=== PATIENT | female | born 1940 | race Caucasian/White ===

== ENCOUNTER 2019-09-21 08:12 | Outpatient (CLI) | payer MEDICARE, BC ==
[~2019-09-21] VITALS: Ht 165.1 cm; Wt 74.1 kg
--- NOTE | ~2019-09-21 | HEMODYNAMI ---
PATIENT:NORIS DUBOSE MEDICAL RECORD: [id number] : 36 LOCATION:[facility] ADMISSION DATE: 09/21/19 Generatedon:09/21/201911:10 Patient name: NORIS DUBOSE Patient #: [id number] SSN: [id number] : 1940 Date of study: 09/21/2019 Page: Of Hemodynamic Procedure Report Patient Data Patient Demographics Procedure consent was obtained First Name: NORIS Gender: Female Last Name: GRACY : 1940 Patient #: [id number] Age: 78 year(s) Race: SSN: [id number] Additional ID: [id number] Contact details Address: [place] [address] State: [place] City: [place] Zip code: [address] Past Medical History Allergies: No known allergies Admission Admission Data Admission Date: 09/21/2019 Admission Time: 8:12 Arrival Date: 09/21/2019 Arrival Time: 0:00 Admit Source: Other Height (in.): 65 BSA: 1.81 (m2) Height (cm.): 165.1 BMI: 27.12 (kg/m2) Weight (lbs.): 163 Weight (kg.): 73.94 Lab Results Lab Result Date: 09/21/2019 Lab Result Time: 0:00 Biochemistry Name Units Result Min Max BUN mg/dl 22 --(----)-* 7 18 Creatinine mg/dl 1.1 --(--*-)-- 0.6 1.3 eGFR ml/min 51 *-(----)-- 90 120 NONAFRICAN CBC Name Units Result Min Max Hematocrit % 39.5 -*(----)-- 42 54 Hemoglobin g/dl 13.1 -*(----)-- 13.5 17.5 Procedure Procedure Types Cath Procedure Diagnostic Procedure [facility] w/Coronaries FFR/IVUS FFR Initial FFR Additional Sedation Charges Moderate Sedation up to 30 minutes PCI Procedure Coronary Stent Coronary Stent Initial x2 Hemochron ACT Test Procedure Description Procedure Date Procedure Date: 09/21/2019 Procedure Start Time: 10:41 Procedure End Time: 11:06 Procedure Staff Name Function Sheila Dhaliwal RT Scrub Milton Avila RN [employer] Professor Eyal Kat MD Performing Physician Araseli Terry RN Nurse Ashley Lawton RT Monitor Procedure Data Cath Procedure Fluoroscopy Diagnostic fluoroscopy Total fluoroscopy Time: 4.6 time: 4.6 min min Diagnostic fluoroscopy Total fluoroscopy dose: 524 dose: 524 mGy mGy Contrast Material Contrast Material Type Amount (ml) Isovue 370 108 Entry Location Entry Primary Successful Side Size Upsize Upsize Entry Closure Lugo ccessful Closure Location (Fr) 1 (Fr) 2 (Fr) Remarks Device Remarks Radial Right 6 Fr Mechanical artery Short Compression Estimated blood loss: 10 ml Diagnostic catheters Device Type Used For End Catheter Placement DIAGNOSTIC Kipton 110cm 5 Procedure Fr catheter ([id number]) Procedure Complications No complications Procedure Medications Medication Administration Route Dosage 0.9% NaCl I.V. 100 ml/hr Oxygen etCO2 Nasal cannula 2 l/min Lidocaine 2% added to field 20 Heparin Flush Bag added to field 2 bags (1000units/500ml NS) Radial Cocktail added to field 1 syringe (Verapamil 2mg/Nitro 400mcg/Heparin 1500units) Versed I.V. 2 mg Fentanyl I.V. 50 mcg Versed I.V. 2 mg Fentanyl I.V. 50 mcg Heparin Bolus I.V. 4000 units Integrilin (Bolus I.V. 6.8 ml 2mg/ml) Integrilin (Bolus wasted 3.2 ml 2mg/ml) Plavix P.O. 600 mg Hemodynamics Rest BSA: 1.81 (m2) HGB: 13.1 (g/dl) O2 Consumption: Estimated: 151.61 (ml/min) O2 Co nsumption indexed: Estimated:83.76 (ml/min/m) Heart Rate: 54 (bpm) Snapshots Pre Cath Intra NCS Post Cath Vital Signs Time Heart Resp SPO2 etCO2 NIBP (mmHg) Rhythm Pain Sedation Rate (ipm) (%) (mmHg) Status Level (bpm) 10:19:52 53 16 96 36 146/69(121) SB 0 (11) 10(A) , No pain 10:24:51 56 10 96 37.1 Measuring SB 0 (11) 10(A) , No pain 10:25:08 55 10 96 37.1 162/70(118) SB 0 (11) 10(A) , No pain 10:29:30 55 13 95 37.9 160/70(129) SB 0 (11) 10(A) , No pain 10:33:46 60 18 96 38.6 104/58(78) NSR 0 (11) 10(A) , No pain 10:37:47 63 16 96 30.3 105/66(94) NSR 0 (11) 10(A) , No pain 10:41:45 67 13 97 0 122/78(107) NSR 0 (11) 10(A) , No pain 10:45:55 75 10 96 0 101/62(90) NSR 0 (11) 10(A) , No pain 10:50:46 75 19 97 28 131/79(106) NSR 0 (11) 9(A) , No pain 10:54:58 78 18 96 40.8 137/75(114) NSR 0 (11) 9(A) , No pain 10:59:12 73 10 97 21.9 126/70(98) NSR 0 (11) 9(A) , No pain 11:03:20 74 19 96 23.6 127/74(106) NSR 0 (11) 10(A) , No pain Medications Time Medication Route Dose Verified Delivered Reason Not es Effectiveness by by 10:18:53 0.9% NaCl I.V. 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 2 mg Eyal Araseli for sedation [place] RN 10:32:15 Fentanyl I.V. 50 mcg Eyal Araseli for sedation [place] RN 10:38:41 Versed I.V. 2 mg Eyal Araseli for sedation [place] RN 10:38:44 Fentanyl I.V. 50 mcg Eyal Araseli for sedation [place] RN 10:53:25 Heparin Bolus I.V. 4000 Eyal Araseli for evert ified units [place] anticoagulation with Dr. GIOVANNA Kat 10:53:35 Integrilin I.V. 6.8 ml Eyal Araseli for (Bolus 2mg/ml) [place] antiplatelet RN therapy 10:53:51 Integrilin wasted 3.2 ml Eyal Araseli for (Bolus 2mg/ml) [place] antiplatelet RN therapy 10:53:58 Plavix P.O. 600 mg Eyal Araseli for [place] antiplatelet RN therapy Procedure Log Time Note 10:11:37 Diagnostic Cath Status : Elective 10:11:55 Admit Source: Other 10:11:59 Procedure Status Elective Heart Cath (OP). 10:12:15 Milton Avila RN sent for patient. Start room use. 10:12:25 Time tracking: Regular hours (M-F 7:00 - 5:00) 10:12:31 Plan of Care:Hemodynamics will remain stable., Cardiac rhythm will remain stable., Comfort level will be maintained., Respiratory function will remain adequate., Patient/ family verbilizes understanding of procedure., Procedure tolerated without complication., Recovers from procedure without complications.. 10:13:32 Lab Result : Hemoglobin 13.1 g/dl 10::32 Lab Result : Hematocrit 39.5 % 10:13:32 Lab Result : eGFR NONAFRICAN 51 ml/min 10:13:32 Lab Result : BUN 22 mg/dl 10:13:32 Lab Result : Creatinine 1.1 mg/dl 10:13:36 Lab results completed and on chart. 10:13:39 Stress Test: no; N/A ? 10:14:18 Patient received from Pre/Post Procedure Room to CCL 2 Alert and oriented. Tansferred to table in Supine position. 10:14:35 Signed procedure consent form obtained from patient. 10:14:36 Warm blankets applied, and ronald hugger turned on for patient comfort. 10:14:37 ECG and BP/O2 sat monitors applied to patient. 10:14:37 Correct patient and procedure confirmed by team. 10:14:47 H&P Date Dictated: 09/14/2019 Within 30 days and on chart.. 10:14:48 Pre-op teaching completed and patient verbalized understanding. 10:14:48 Pre-procedure instructions explained to patient. 10:14:50 Family in waiting room. 10:14:51 Patient NPO since Midnight. 10:15:20 Patient allergic to No known allergies 10:15:23 Is the patient allergic to Iodine/contrast media? No. 10:15:27 Was the patient premedicated? N/A 10:15:28 Is patient on blood thinner?No 10:15:30 Patient diabetic? Yes. 10:15:32 If diabetic: On Metformin? No 10:15:35 Patient not . Patient is over age 55. 10:15:36 ----Pre-sedation anethsthesia assessment.---- 10:15:39 Previous problem with sedation/anesthesia? No ? 10:15:40 Snore? Yes 10:15:44 Sleep apnea? Yes 10:15:45 Deviated septum? No 10:15:46 Opens mouth fully? Yes 10:15:48 Sticks out tongue? Yes 10:16:02 Airway obstruction? Unknown sleeps with o2 at night 10:16:05 Dentures? No ? 10:16:21 Arrival Date: 09/21/2019 12:00:00 AM 10:16:26 Patient Height : 65 inches 10:16:42 Patient Weight : 163 lbs 10:18:08 Risk of Mortality: .3 10:18:11 Risk of blood transfusion: .6 10:18:14 Risk of MARCELO: .5 10:18:15 Alarms reviewed by R. N. 10:18:16 Sharps counted by scrub and verified by R.N. 10:18:44 Vital chart was started 10:18:53 0.9% NaCl 100 ml/hr I.V. was administered by Araseli Terry RN; used for procedure; Verbal order read back and verified. 10:19:00 Oxygen 2 l/min etCO2 Nasal cannula was administered by Araseli Terry RN; used for procedure; Verbal order read back and verified. 10:19:06 Lidocaine 2% 20ml vial added to field was administered by Eyal Kat MD; for local anesthetic; Verbal order read back and verified. 10:19:11 Heparin Flush Bag (1000units/500ml NS) 2 bags added to field was administered by Eyal Kat MD; used for procedure; Verbal order read back and verified. 10:19:19 Radial Cocktail (Verapamil 2mg/Nitro 400mcg/Heparin 1500units) 1 syringe added to field was administered by Eyal Kat MD; used for procedure; Verbal order read back and verified. 10:25:51 Baseline sample Acquired. 10:25:52 Full Disclosure recording started 10:26:00 Pre procedure: right dorsailis pedis pulse 1+ Palpable, but thready & weak; easily obliterated 10:26:02 Modified Joshua's test Ulnar < 7 seconds 10:26:04 Patient pain scale 0/10 ?. 10:26:15 IV patent on arrival in left hand with 0.9% NaCl at KVO. 10:26:21 Right Radial & Right Groin area was prepped with chlora-prep and draped in sterile fashion 10:26:29 Baseline sample Acquired. 10:26:35 Use device set Radial Dx or PCI 10:26:37 Medline Cath Pack ([id number]) opened to sterile field. 10:26:37 ACIST Syringe (98390) opened to sterile field. 10:26:38 Bag Decanter () opened to sterile field. 10:26:39 ACIST Manifold (38810) opened to sterile field. 10:26:39 ACIST Hand Control (22289) opened to sterile field. 10:26:40 Tegaderm 4 x 4 (1626W) opened to sterile field. 10:26:41 MBrace Wrist Support ([id number]) opened to sterile field. 10:26:43 SHEATH 6FR RAIN (4771568) opened to sterile field. 10:26:43 EMERALD Guide Wire (771-085) opened to sterile field. 10:31:36 --------ALL STOP TIME OUT------ 10:31:37 Final Timeout: patient, procedure, and site verified with staff and physician. All members of the team are in agreement. 10:31:39 Right Radial & Right Groin site verified by team. 10:31:41 Fire Safety Assessment: A--An alcohol-based skin anteseptic being used preoperatively., C--Open oxygen or nitrous oxide is being used., D--An ESU, laser, or fiber-optic light is being used. 10:31:46 Physical assessment completed. ASA score P 2 - A patient with mild systemic disease as per Eyal Kat MD. 10:31:49 3a) 45-59 Moderately reduced kidney function. 10:31:54 Maximum allowable contrast dose (3.7 X eGFR X 0.75)142 ml. 10:31:58 Sedation plan: IV Moderate Sedation Medication:Versed, Fentanyl 10:32:04 Versed 2 mg I.V. was administered by Araseli Terry RN; for sedation; Verbal order read back and verified. 10:32:15 Fentanyl 50 mcg I.V. was administered by Araseli Terry RN; for sedation; Verbal order read back and verified. 10:33:02 Zero performed for pressure channel P1 10:38:41 Versed 2 mg I.V. was administered by Araseli Terry RN; for sedation; Verbal order read back and verified. 10:38:44 Fentanyl 50 mcg I.V. was administered by Araseli Terry RN; for sedation; Verbal order read back and verified. 10:41:16 Procedure started. 10:41:33 Local anesthetic to right radial artery with Lidocaine 2% by Eyal Kat MD.INITIAL ACCESS ONLY 10:42:25 A 6 Fr Short sheath was inserted into the Right Radial artery 10:42:37 A DIAGNOSTIC Kipton 110cm 5 Fr catheter ([id number]) was advanced over the wire and used for Procedure. 10:42:59 LV gram done using MARCELO 10:43:03 Injector settings: Ml/sec: 5, Volume: 15, 10:43:42 EF : 60 % 10:44:57 RCA angiography performed. 10:45:06 ACCDominant side:Co-Dominant 10:45:13 Catheter exchanged over wire. 10:46:41 GUIDE 6FR XB 3.5 catheter ([id number]) opened to sterile field. 10:46:44 LCA angiography performed. 10:46:45 6 Fr XB 3.5 guide catheter was inserted over the wire 10:47:13 Proceeding to intervention. 10:47:13 Catheter exchanged over wire. 10:47:18 Use device set TAUTH PCI 10:47:30 INFLATOR Merit BasixCompak (QL6832) opened to sterile field. 10:47:36 [place] Verrata Plus pressure wire (26505V) opened to sterile field. 10:49:37 Zero performed for pressure channel P1 10:50:37 FFR/IFR wire advanced. 10:50:38 Wire advanced across lesion. 10:51:37 LAD lesion measured at .67 with IFR 10:53:25 Heparin Bolus 4000 units I.V. was administered by Araseli Terry RN; for anticoagulation; verified with Dr. Kat Verbal order read back and verified. 10:53:35 Integrilin (Bolus 2mg/ml) 6.8 ml I.V. was administered by Araseli Terry RN; for antiplatelet therapy; Verbal order read back and verified. 10:53:51 Integrilin (Bolus 2mg/ml) 3.2 ml wasted was administered by Araseli Terry RN; for antiplatelet therapy; Verbal order read back and verified. 10:53:58 Plavix 600 mg P.O. was administered by Araseli Terry RN; for antiplatelet therapy; Verbal order read back and verified. 10:54:59 Pre PCI Site: [place] LAD has 75% stenosis. 10:55:25 Place stent Inflation Number: 1 A GLENIS RX 2.5 x 22 stent ([id number]) was prepped and advanced across the Mid LAD . The stent was deployed at 19 VIVI for 0:00 (min:sec) . 10:55:29 Stent catheter was removed intact over wire. 10:55:55 Guide catheter removed. 10:55:55 Wire removed. 10:55:59 6 Fr AR 2 guide catheter was inserted over the wire 10:57:03 FFR/IFR wire advanced. 10:57:04 Wire advanced across lesion. 10:58:13 mRCA lesion measured at .80 with IFR 10:58:31 Pre PCI Site: [place] RCA has 75% stenosis. 10:59:54 Place stent Inflation Number: 1 A GLENIS RX 3.0 x 22 stent ([id number]) was prepped and advanced across the Mid RCA . The stent was deployed at 17 VIVI for 0:00 (min:sec) . 10:59:59 Wire removed. 10:59:59 Stent catheter was removed intact over wire. 11:00:00 Guide catheter removed. 11:00:31 ZEPHYR REGULAR TR BAND (088699) opened to sterile field. 11:00:45 Sheath removed intact; hemostasis achieved with Mechanical Compression to the Right Radial artery. 11:00:47 Procedure ended.(Physican Out) 11::17 Fluoroscopy time 04.60 minutes. 11:01:20 Fluoroscopy dose: 524 mGy 11:: Flurop Dose total: 524 11:: Dose Area Product 18025 mGy/cm. 11::31 Contrast amount:Isovue 370 108ml. 11::33 Maximum allowable dose exceeded? No. 11::35 Sharps counted by scrub and verified by R.N. 11:01:37 [place] band inflated with 10cc of air. 11:01:39 Post Procedure Pulses reassessed and unchanged 11:01:42 Post procedure: right dorsailis pedis pulse 1+ Palpable, but thready & weak; easily obliterated. 11:01:46 Post-procedure physical assessment completed. ASA score P 2 - A patient with mild systemic disease as per Eyal Kat MD. 11:01:49 Post procedure rhythm: unchanged. 11:01:52 Estimated blood loss: 10 ml 11::53 Patient needs reinforcement of post procedure teaching. 11:01:53 Post procedure instruction explained to patient.Patient verbalizes understanding. 11:02:36 Procedure type changed to Cath procedure, Diagnostic procedure, C, [facility] [place] w/Coronaries, FFR/IVUS, FFR Initial, FFR Additional, Sedation Charges, Moderate Sedation up to 30 minutes, PCI procedure, Coronary Stent, Coronary Stent Initial x2, Hemochron ACT Test 11:04:24 ACT drawn and resulted at >400- out of range seconds. (normal therapeutic range 180-240 seconds). 11:06:17 Procedure and supply charges have been captured, reviewed, submitted and are correct. 11:06:20 Procedure Complication : No complications 11:06:23 Vital chart was stopped 11:06:26 [facility] [place] Findings: MVD- PCI performed (see procedure note) 11:06:27 See physician's report for complete and final results. 11:06:27 Operative report dictated upon procedure completion. 11:06:29 Report given to Pre/Post Procedure Room. 11:06:33 Patient transfered to Pre/Post Procedure Room with Stretcher. 11:06:34 Full Disclosure recording stopped 11:06:34 Procedure ended. 11:06:47 ACC-PCI Only Patient was given prescriptions, or instructed by Eyal Kat MD to start/continue the following medications upon discharge: Plavix 11:06:48 End room use (Document Last) 11:06:59 End room use (Document Last) 11:07:30 End room use (Document Last) Intervention Summary Intervention Notes Time ActionType Lesion and Equipment Used Action# Pressure Duration Attributes 10:55:25 Place stent Mid LAD GLENIS RX 2.5 x 1 19 00:00 22 stent ([id number]) 10:59:54 Place stent Mid RCA GLENIS RX 3.0 x 1 17 00:00 22 stent ([id number]) Device Usage Item Name Manufacture Quantity Catalog Hospital Part Current Minimal Lot# / Number Charge Number Stock Stock Serial# Code ACIST Syringe Acist 1 67112 900112 547576 887226 20 (93211) Medical Systems Inc Medline Cath Medline 1 [id number] 979693 63615 900465 5 Pack ([id number]) Bag Decanter Microtek 1 2001S 416576 94309 661130 5 (2002S) Medical Inc. ACIST Hand Acist 1 30387 472741 701422 452478 5 Control Medical (65320) Systems Inc ACIST Manifold Acist 1 80261 480367 734406 172636 5 (32982) Medical Systems Inc Tegaderm 4 x 4 3M 1 1626W 749216 265612 185313 5 (1626W) MBrace Wrist Advanced 1 140-0250-00 378126 60364 812483 5 Support Vascular ([id number]) Dynamics EMERALD Guide Cardinal 1 502-455 800416 249170 625728 5 Wire (982-455) Health SHEATH 6FR Cardinal 1 4083857 123757 1648529 570176 5 RAIN (8979244) Health DIAGNOSTIC Terumo 1 40-7161 251062 221228 901996 5 Kipton 110cm 5 Fr catheter (750907) GUIDE 6FR XB Cardinal 1 [id number] 745177 354455 609343 2 3.5 catheter Health (10388124) INFLATOR Merit Merit 1 [id number] 680948 154819 343353 15 [facility] (LT4170) Orlando Orlando 1 59972B 227840 035150392 221749 5 Verrata Plus pressure wire (10275X) GLENIS RX 2.5 x Medtronic 1 [id number] 845420 7907173 045973 5 [id number] 22 stent ([id number]) GLENIS RX 3.0 x Medtronic 1 [id number] 342926 3921669 009482 5 [id number] 22 stent ([id number]) ZEPHYR REGULAR Cardinal 1 069558 615118 0271304 802692 5 [facility] (553493) Signature Audit [place] Stage Time Signature Unsigned Intra-Procedure 09/21/2019 Ashley Lawton 11:06:59 AM RT(R) Intra-Procedure 09/21/2019 Araseli Terry 11:07:30 AM RN Intra-Procedure 09/21/2019 Eyal Kat MD 11:07:43 AM 09/21/2019 11:09:28 AM Intra-Procedure 09/21/2019 Eyal Kat 11:10:33 AM Signatures Performing Physician : Signature : Eyal Kat MD Date : Time : Nurse : Araseli Terry RN Signature : Date : Time : Monitor : Ashley Lawton Signature : RT Date : Time : [facility] [address] [place] [address]
--- NOTE | ~2019-09-21 | OP ---
PATIENT NAME: NORIS DUBOSE MEDICAL RECORD: [id number] :36 LOCATION:D.CAT ADMISSION DATE: SURGEON: CARMEN DUONG MD DATE OF OPERATION: 09/21/2019 PROCEDURES: 1. PTCA stent LAD. 2. PTCA stent RCA. 3. IFR LAD. 4. IFR RCA. 5. Left heart catheterization. 6. Selective coronary angiography. 7. Left ventriculogram. INDICATION: Angina and coronary artery disease. PROCEDURE IN DETAIL: After informed consent was obtained and after a detailed description of risks, benefits as well as alternative therapies, the patient elected to proceed with angiogram and angioplasty. The right radial area was prepped and draped in normal sterile fashion. Right radial artery was cannulated via modified somewhat with placement of 6-[place] sheath. All catheters exchanged through this sheath. FINDINGS: The left ventriculogram was performed in a standard 30-degree MARCELO view, reveals good cardiac wall motion, ejection fraction estimated 60%. SELECTIVE CORONARY ANGIOGRAPHY: 1. Left main is with no significant angiographic disease. 2. Left anterior descending has a previously placed stent with 75% in-stent restenosis and IFR is abnormal. 3. Left circumflex has mild irregularities, but no flow-limiting stenosis. 4. The right coronary has a 75% stenosis mid vessel and IFR was abnormal. PTCA STENT OF THE LAD: The stent used was a 2.5 x 22 mm Bhanu. Result was 0% residual stenosis. PTCA STENT OF THE RCA: The stent used was a 3.0 x 22 mm Bhanu. Result was 0% residual stenosis. OVERALL IMPRESSION: Successful percutaneous transluminal coronary angioplasty stent of the left anterior descending and right coronary artery going from 75% initial stenosis with abnormal IFR to 0% residual. TRANSINT:[id number] Voice Confirmation ID: [id number] DOCUMENT ID: [id number] CARMEN DUONG MD CC: [id number] DICTATION DATE: 09/21/19 1106 ELECTRONICS PROCESSING SUPERVISOR: 09/21/19 1618 DEP CLI 09/21/19 [place] [id number]
[2019-09-21] MEDS ORDERED: VITAMIN B-121000 MCG (08:50)
[2019-09-21] MEDS ORDERED: NORVASC10 MG PO (08:50)
[2019-09-21] MEDS ORDERED: ASPIRIN81 MG PO (08:50)
[2019-09-21] MEDS ORDERED: VITAMIN D10000 UNI1 (08:50)
[2019-09-21] MEDS ORDERED: CELEXA20 MG PO (08:51)
[2019-09-21] MEDS ORDERED: MERIBIN5 MG (08:51)
[2019-09-21] MEDS ORDERED: COREG 3.1253.125 MG PO (08:51)
[2019-09-21] MEDS ORDERED: CATAPRES0.1 MG PO (08:52)
[2019-09-21] MEDS ORDERED: CYCLOBENZAPRINE10 MG PO (08:53)
[2019-09-21] MEDS ORDERED: CO Q-1030 MG (08:53)
[2019-09-21] MEDS ORDERED: FOLATE0.4 MG (08:54)
[2019-09-21] MEDS ORDERED: FLUTICASONE PRO16 GM NASAL (08:54)
[2019-09-21] MEDS ORDERED: HCTZ25 MG PO (08:54)
[2019-09-21] MEDS ORDERED: ISOSORBIDE MONO60 M1 PO (08:55)
[2019-09-21] MEDS ORDERED: SYNTHROID50 MCG PO (08:55)
[2019-09-21] MEDS ORDERED: AVAPRO150 MG PO (08:55)
[2019-09-21] MEDS ORDERED: CRESTOR40 MG PO (08:56)
[2019-09-21] MEDS ORDERED: PROTONIX40 MG PO (08:56)
[2019-09-21 09:02] VITALS: BP 147/70; Ht 165.1 cm; Wt 74.1 kg
[2019-09-21 09:27] LABS: BASOPHILS 0.4 % (0-2); EOSINOPHILS 0.6 % (0-7); HEMATOCRIT 39.5 % (36.0-48.0); HEMOGLOBIN 13.1 g/dL (12-16); IMMATURE GRANULOCYTES 0.2 % (0-5); MCH 30.3 pg (26.0-34.0); MCHC 33.2 g/dL (31.0-37.0); MCV 91.2 fL (80.0-100.0); MEAN PLATELET VOLUME 9.9 fL (7.4-10.4); MONOCYTES 9.6 % (2-11); NEUTROPHILS 64.2 % (40-80); PLATELET COUNT 214 10x3/uL (130-400); RBC 4.33 10x6/uL (4.00-5.40); RDW 13.7 % (11.5-14.5); WBC 8.4 10x3/uL (4.8-10.8)
[2019-09-21 09:47] LABS: ANION GAP 12.2 mmol/L (8-16); CALCIUM 9.9 mg/dL (8.5-10.1); CARBON DIOXIDE 28.8 mmol/L (21.0-32.0); CHOL - HDL RATIO 2.5 ratio (2.3-4.1); CREATININE - SERUM 1.1 mg/dL (0.6-1.3)
[2019-09-21] MEDS ORDERED: PLAVIX75 MG PO (11:04)
--- NOTE | 2019-09-21 11:15 | NUR ---
PT ARRIVED BY STRETCHER. PLACED ON MONITORS. ASSESSMENT COMPLETED. VSS. NO FAMILY AT BEDSIDE. CALL LIGHT WITHIN REACH.
--- NOTE | 2019-09-21 11:32 | NUR ---
PT RESTING COMFORTABLY. VSS. RIGHT WRIST Z BAND IN PLACE. NO BLEEDING/HEMATOMA NOTED.
--- NOTE | 2019-09-21 12:00 | NUR ---
RIGHT WRIST Z BAND IN PLACE. NO BLEEDING/HEMATOMA NOTED. CALL LIGHT WITHIN REACH. VSS. PT RESTING COMFORTABLY AT THIS TIME.
--- NOTE | 2019-09-21 12:30 | NUR ---
RIGHT WRIST Z BAND IN PLACE. NO BLEEDING/HEMATOMA NOTED. RESTING COMFORTABLY. VSS AT THIS TIME. WILL CONTINUE TO MONITOR.
--- NOTE | 2019-09-21 13:00 | NUR ---
RIGHT WRIST Z BAND IN PLACE. NO BLEEDING/HEMATOMA NOTED. CALL LIGHT WITHIN REACH. VSS. NO NEEDS AT THIS TIME.
--- NOTE | 2019-09-21 14:00 | NUR ---
4cc OF AIR REMOVED FROM Z BAND. NO BLEEDING/HEMATOMA NOTED. CALL LIGHT WITHIN REACH. FRIEND AT BEDSIDE. VSS. PT MORE AWAKE. SET UP WITH SANDWICH TRAY AND DRINK. DENIES NAUSEA/PAIN.
--- NOTE | 2019-09-21 14:30 | NUR ---
4cc OF AIR REMOVED FROM Z BAND. NO BLEEDING/HEMATOMA NOTED. CALL LIGHT WITHIN REACH. FRIEND AT BEDSIDE. NO OTHER NEEDS AT THIS TIME.
--- NOTE | 2019-09-21 14:45 | NUR ---
Z BAND REMOVED AND DRESSING APPLIED. NO BLEEDING/HEMATOMA NOTED. PIV D/C'D WITH CATH TIP INTACT. PT INSTRUCTED TO GET UP AND DRESSED. NO ASSISTANCE NEEDED. CALL LIGHT WITHIN REACH.
--- NOTE | 2019-09-21 15:05 | NUR ---
PT TO RESTROOM AND VOIDED WITHOUT DIFFICULTY. DISCUSSED DISCHARGE INSTRUCTIONS WITH PT. SHE VOICED UNDERSTANDING.
--- NOTE | 2019-09-21 15:10 | NUR ---
RIGHT WRIST DRESSING C/D/I. NO S/S OF HEMATOMA NOTED. PT TAKEN OUT TO VEHICLE BY WHEELCHAIR. NO S/S OF DISTRESS NOTED. ALL BELONGINGS AND PAPERWORK IN HAND.
== END 2019-09-21 15:10 | disposition home or self-care (01) ==
LOC: D.CATH 08:12
PROVIDERS: ATTEND Internal Medicine Interventional Cardiology
DX: I25.119 Atherosclerotic heart disease of native coronary artery with unspecified angina pectoris (principal); E11.9 Type 2 diabetes mellitus without complications; E78.5 Hyperlipidemia, unspecified; I10 Essential (primary) hypertension; K21.9 Gastro-esophageal reflux disease without esophagitis; R06.09 Other forms of dyspnea; I48.0 Paroxysmal atrial fibrillation; J44.9 Chronic obstructive pulmonary disease, unspecified; R94.39 Abnormal result of other cardiovascular function study
CPT/HCPCS: 93571; 93572; 93458; C9600 ×2